=== PATIENT | male | born 1990 | race Caucasian/White ===

== ENCOUNTER 2020-10-16 20:22 | Emergency (ER) | payer OTHER, SELFPAY ==
[2020-10-16 20:49] VITALS: BP 133/80; PULSE 97; RESP 18; TEMP 36.8; O2SAT 97; BMI 22.4
--- NOTE | 2020-10-16 21:09 | XR_ITS ---
EXAMINATION: XR CHEST CLINICAL INFORMATION: Dyspnea. COMPARISON: None TECHNIQUE: Frontal view of the chest was obtained. FINDINGS: No significant abnormality is noted involving the heart, lungs, mediastinum, bony thorax or soft tissues. XR/XR chest 1V IMPRESSION: No acute cardiopulmonary process.
--- NOTE | 2020-10-16 21:10 | ECG_ITS ---
Test Reason : [id number] Blood Pressure : / mmHG Vent. Rate : 081 BPM Atrial Rate : 081 BPM P-R Int : 152 ms QRS Dur : 082 ms QT Int : 344 ms P-R-T Axes : 060 000 074 degrees QTc Int : 399 ms Normal sinus rhythm with sinus arrhythmia Nonspecific T wave abnormality Borderline ECG No previous ECGs available Referred By: Sol Moore Electronically Signed By:PROMISE HERRERA
--- NOTE | 2020-10-16 21:11 | ED.SOB ---
HPI - SOB/Dyspnea General Chief Complaint: Dyspnea Stated Complaint: SOB Time Seen by Provider: 10/16/20 21:09 Source: patient Mode of arrival: ambulatory Limitations: no limitations History of Present Illness HPI Narrative: dyspnea x 2 days, dx with COVID on 10/01/20 c/o L sided intermittent chest pains and dyspnea x 2 days, notes overall with COVID he felt MD elicited complaint: shortness of breath and chest pain Pertinent past history: asthma and other (COVID) Onset (ago): hour(s) (2) Context: recent illness Timing: intermittent Severity: moderate Exacerbating factors: nothing Relieving factors: nothing Known history of: asthma Associated symptoms: chest pain Treatment prior to arrival: none Related Data Allergies Allergy/AdvReac Type Severity Reaction Status Date / Time shellfish derived Allergy Difficulty Verified 10/16/20 20:56 Breathing Review of Systems Review of Systems: Constitutional : No Weight loss, No Fever, No Chills ENT/Mouth : No sore throat, No Rhinorrhea Eyes: No Eye Pain, No Swelling Cardiovascular : pos Chest Pain, pos SOB, no Dyspnea on Exertion, No Orthopnea, No Edema, No Palpitations Respiratory : No Cough, No Sputum Gastrointestinal : no Nausea, No Vomiting, No Diarrhea, No abdominal Pain, No Hematochezia, No Melena Genitourinary : No Dysuria, No Urinary Frequency Musculoskeletal : No joint pain, No Myalgias, No Joint Swelling Skin : No Skin Lesions, No rash Neuro : No Weakness, No Numbness, No Dizziness, No Headache Psych : No Anxiety/Panic, No Depression Heme/Lymph: No Bruising, No Lymphadenopathy Endocrine : No Polyuria, No Polydipsia All other systems reviewed and are negative [facility] Past Medical History Attestation statement: The following information was validated with the patient. Medical History (Updated 10/16/20 @ 22:27 by Sol Moore DO) Anxiety Asthma Social History Social History (Updated 10/16/20 @ 21:17 by Sol Moore DO) Alcohol intake: unknown Smoking Status: Current every day smoker Use of substances other than those prescribed or required for medical reasons: No Advance Directives: No Advance Directives Information Provided: No Physical Exam Vital Signs: Vital Signs: Last Vital Signs Temp 98.3 F 10/16/20 20:49 Pulse 97 10/16/20 20:49 Resp 18 10/16/20 20:49 BP 133/80 10/16/20 20:49 Pulse Ox 97 10/16/20 20:49 Body Mass Index 22.4 Appearance: Alert. Oriented X3. No acute distress. Eyes: Pupils equal, round and reactive to light. ENT: Pharynx normal. Neck: Normal inspection. Neck supple. CVS: Normal heart rate and rhythm. Pulses normal. Respiratory: No respiratory distress. Breath sounds normal. Abdomen: Soft and nontender. Skin: Skin warm and dry. Normal skin color. Normal skin turgor. Extremities: No lower extremity edema. No calf ttp Neuro: Oriented X 3. No motor deficit. No sensory deficit. Course Course Course Narrative: negative workup stable for DC MDM - SOB/Dyspnea MDM Narrative Medical decision making narrative: 29 yo male with recent COVID illness here with chest pain and dyspnea x 2 days at this time will need labs, EKG, troponin x 1, ddimer - has INH at home, no hypoxia and clear lungs, possibly anxiety related, low susp for dissection/ACS Lab Data Result diagrams: 10/16/20 21:35 10/16/20 21:35 Labs: Lab Results 10/16/20 10/16/20 10/16/20 Range/Units 21:35 21:35 21:35 WBC 7.8 (4.8-10.8) X10*3/uL RBC 5.32 (4.60-5.80) X10*6/uL Hgb 16.5 (14.0-18.0) g/dl Hct 47.4 (42-52) % MCV 89.1 (80-98) fL MCH 31.0 (27.0-33.0) pg MCHC 34.8 (31.0-36.0) g/dl RDW 11.9 (11.0-16.0) % Plt Count 322 (160-400) X10*3/uL MPV 9.9 (9.4-12.4) fL Immature Gran % (Auto) 0.1 (0.0-0.4) % Neut % (Auto) 71.5 (45-73) % Lymph % (Auto) 19.5 L (20-40) % Russell % (Auto) 6.1 (2-11) % Eos % (Auto) 2.3 (0-4) % Baso % (Auto) 0.5 (0-2) % Lymph # (Auto) 1.5 (1.2-4.9) X10*3/uL [place] # (Auto) 0.5 (0.1-1.2) X10*3/uL Eos # (Auto) 0.2 (0.0-0.4) X10*3/uL Baso # (Auto) 0.0 (0.0-0.2) X10*3/uL Abs Immat Gran (auto) 0.01 (0.00-0.03) X10*3/uL Absolute Neuts (auto) 5.6 (2.0-8.3) X10*3/uL Absolute Nucleated RBC 0.000 (0.0-0.012) X10*3/uL Nucleated RBC % (auto) 0.0 (0.0-0.2) /100WBC D-Dimer < 200 NG/ML Sodium 139 (135-145) mmol/L Potassium 4.2 (3.3-5.1) mmol/l Chloride 104 (96-108) mmol/L Carbon Dioxide 24 (22-29) mmol/L Anion Gap 15 (12-20) BUN 11 (9-16) mg/dL Creatinine 0.88 (0.5-1.4) mg/dL Estim Creat Clear Calc 109.2 Estimated GFR > 60 Random Glucose 102 (60-115) mg/dL Calcium 9.7 (8.4-10.2) mg/dL Troponin I High Sens (<3.5-35.0) ng/L 10/16/20 Range/Units 21:35 WBC (4.8-10.8) X10*3/uL RBC (4.60-5.80) X10*6/uL Hgb (14.0-18.0) g/dl Hct (42-52) % MCV (80-98) fL MCH (27.0-33.0) pg MCHC (31.0-36.0) g/dl RDW (11.0-16.0) % Plt Count (160-400) X10*3/uL MPV (9.4-12.4) fL Immature Gran % (Auto) (0.0-0.4) % Neut % (Auto) (45-73) % Lymph % (Auto) (20-40) % Russell % (Auto) (2-11) % Eos % (Auto) (0-4) % Baso % (Auto) (0-2) % Lymph # (Auto) (1.2-4.9) X10*3/uL Russell # (Auto) (0.1-1.2) X10*3/uL Eos # (Auto) (0.0-0.4) X10*3/uL Baso # (Auto) (0.0-0.2) X10*3/uL Abs Immat Gran (auto) (0.00-0.03) X10*3/uL Absolute Neuts (auto) (2.0-8.3) X10*3/uL Absolute Nucleated RBC (0.0-0.012) X10*3/uL Nucleated RBC % (auto) (0.0-0.2) /100WBC D-Dimer NG/ML Sodium (135-145) mmol/L Potassium (3.3-5.1) mmol/l Chloride (96-108) mmol/L Carbon Dioxide (22-29) mmol/L Anion Gap (12-20) BUN (9-16) mg/dL Creatinine (0.5-1.4) mg/dL Estim Creat Clear Calc Estimated GFR Random Glucose (60-115) mg/dL Calcium (8.4-10.2) mg/dL Troponin I High Sens < 3.5 (<3.5-35.0) ng/L ECG Data Attestation: I personally reviewed and interpreted this ECG as follows: ECG interpretation date: 10/16/20 ECG interpretation time: 21:48 Interpretation: Rate: 81 Rhythm: NSR [place]: left Normal P waves. Normal PEGGY. Normal QRS complex. ST T wave : inverted aVL, no JO ANN qTC: normal prior studies: no acute ischemia The study has been interpreted contemporaneously by me. . Discharge Plan Discharge Clinical Impression: Acute dyspnea Patient Disposition: Home, Self-Care Instructions: Dyspnea (ED) Additional Instructions: return to ED for any worsening symptoms or concerns Referrals: Physician,Unknown [Primary Care Provider] - 2 days (if not better) Stand Alone Forms: Work/School Release
[2020-10-16 21:40] LABS: MANUAL DIFF FLAG NO
[2020-10-16 21:47] LABS: Basophils Percent Auto 0.5 % (0-2); Eosinophils Absolute Auto 0.2 X10*3/uL (0.0-0.4); Eosinophils Percent Auto 2.3 % (0-4); Hematocrit 47.4 % (42-52); Hemoglobin 16.5 g/dl (14.0-18.0); Imm Gran Abs Auto 0.01 X10*3/uL (0.00-0.03); Imm Gran Pct Auto 0.1 % (0.0-0.4); Lymphocytes Absolute Auto 1.5 X10*3/uL (1.2-4.9); Lymphocytes Percent Auto 19.5 % (20-40); Mean Corpuscular HGB Conc 34.8 g/dl (31.0-36.0); Mean Corpuscular Volume 89.1 fL (80-98); Mean Platelet Volume 9.9 fL (9.4-12.4); Monocytes Absolute Auto 0.5 X10*3/uL (0.1-1.2); Monocytes Percent Auto 6.1 % (2-11); Neutrophils Absolute Auto 5.6 X10*3/uL (2.0-8.3); Neutrophils Percent Auto 71.5 % (45-73); Platelet Count 322 X10*3/uL (160-400); Red Blood Count 5.32 X10*6/uL (4.60-5.80); Red Cell Distribution Width 11.9 % (11.0-16.0); White Blood Count 7.8 X10*3/uL (4.8-10.8)
[2020-10-16 21:57] LABS: D Dimer < 200 NG/ML
[2020-10-16 22:16] LABS: Anion Gap 15 (12-20); Blood Urea Nitrogen 11 mg/dL (9-16); Calcium 9.7 mg/dL (8.4-10.2); Carbon Dioxide 24 mmol/L (22-29); Chloride 104 mmol/L (96-108); Creatinine Clr Calc Pharmacy 109.2; Estimated Glomerular Filt Rate > 60; Glucose Random 102 mg/dL (60-115); Potassium 4.2 mmol/l (3.3-5.1); Sodium 139 mmol/L (135-145)
[2020-10-16 22:24] LABS: Troponin-I High Sensitivity < 3.5 ng/L (<3.5-35.0)
== END 2020-10-16 22:32 | disposition home or self-care (01) ==
PROVIDERS: Emergency Provider Emergency Medicine
DX: R06.00 Dyspnea, unspecified (principal); Z86.16 Personal history of COVID-19; F17.200 Nicotine dependence, unspecified, uncomplicated; J45.909 Unspecified asthma, uncomplicated
CPT/HCPCS: 36415; 71045; 80048; 84484; 85025; 85379; 93005; 99284

== ENCOUNTER 2021-01-22 19:36 | Emergency (ER) | payer OTHER, SELFPAY ==
--- NOTE | ~2021-01-22 | CT_ITS ---
EXAMINATION: CT ABDOMEN AND PELVIS WITH CONTRAST CLINICAL INFORMATION: Right lower quadrant pain with question of appendicitis. History of renal stones but negative urine analysis COMPARISON: CT abdomen pelvis 12/02/2013 TECHNIQUE: Multidetector volumetric images were obtained from the superior aspect of the liver through the pubic symphysis following administration 85 mL of Omnipaque 350 intravenous contrast. Sagittal and coronal reformatted images were obtained on the technologist's workstation. Oral contrast: No This CT examination was performed using dose optimization techniques as appropriate, variously including the following: *Automated exposure control *Adjustment of mA and/or kV according to patient size (this includes techniques or standardized protocols for targeted exams where dose is matched to indication/reason for exam; i.e. extremities or head) *Use of iterative reconstruction technique DLP: 372 mGy-cm FINDINGS: LUNG BASES: The visualized lung bases are unremarkable. LIVER, GALLBLADDER, AND BILIARY TREE: The liver is normal in size, shape, and attenuation. No focal hepatic lesion or biliary ductal dilatation is present. The gallbladder is unremarkable with no evidence of radiopaque gallstones, gallbladder wall thickening, or obvious pericholecystic inflammatory changes. PANCREAS: Unremarkable. SPLEEN: A densely calcified splenic cyst is present. The calcium has appeared since the 2013 study. ADRENAL GLANDS: Unremarkable. KIDNEYS AND URETERS: The kidneys are normal in size, shape, and attenuation. No hydronephrosis, hydroureter, or calculi seen. No perinephric stranding. BLADDER: Unremarkable. GASTROINTESTINAL TRACT: Some colonic diverticular changes are present without diverticulitis. The small and large bowel are otherwise unremarkable. The appendix is unremarkable without inflammatory changes. It is 6 mm in diameter. No air is present within the appendix. No adenopathy is seen.. ABDOMINAL WALL: No significant hernia is appreciated. LYMPH NODES: There is some mildly prominent lymph nodes present in the cecal mesentery the largest measuring 2.0 x 0.9 x 1.0 cm (4:447). No retroperitoneal lymphadenopathy is seen VASCULAR: Unremarkable. PELVIC VISCERA: Unremarkable. OSSEOUS STRUCTURES: Unremarkable. CT/CT abdomen pelvis w con IMPRESSION: A cause for the patient's acute right lower quadrant pain is not found. No evidence of acute appendicitis. Prominent lymph nodes are present in the cecal mesentery as described above.
[2021-01-22 19:50] VITALS: BP 127/72; PULSE 88; RESP 18; TEMP 37.2; O2SAT 98; BMI 21.6
[2021-01-22 20:35] LABS: MANUAL DIFF FLAG NO
[2021-01-22 20:39] LABS: Basophils Absolute Auto 0.1 X10*3/uL (0.0-0.2); Basophils Percent Auto 0.6 % (0-2); Eosinophils Absolute Auto 0.4 X10*3/uL (0.0-0.4); Eosinophils Percent Auto 4.4 % (0-4); Hematocrit 47.5 % (42-52); Hemoglobin 16.5 g/dl (14.0-18.0); Imm Gran Abs Auto 0.02 X10*3/uL (0.00-0.03); Imm Gran Pct Auto 0.2 % (0.0-0.4); Lymphocytes Absolute Auto 1.2 X10*3/uL (1.2-4.9); Mean Corpuscular HGB Conc 34.7 g/dl (31.0-36.0); Mean Corpuscular Hemoglobin 31.2 pg (27.0-33.0); Mean Corpuscular Volume 89.8 fL (80-98); Mean Platelet Volume 9.3 fL (9.4-12.4); Monocytes Absolute Auto 0.6 X10*3/uL (0.1-1.2); Monocytes Percent Auto 6.2 % (2-11); Neutrophils Absolute Auto 6.7 X10*3/uL (2.0-8.3); Neutrophils Percent Auto 75.6 % (45-73); Platelet Count 265 X10*3/uL (160-400); Red Blood Count 5.29 X10*6/uL (4.60-5.80); Red Cell Distribution Width 11.9 % (11.0-16.0); White Blood Count 8.9 X10*3/uL (4.8-10.8)
[2021-01-22 20:40] LABS: Appearance Urine CLEAR; Color Urine YELLOW; Glucose Urine UA NEG (NEG); Leukocyte Esterase Urine NEG (NEG); Nitrite Urine NEG (NEG); Urine Blood TRACE (NEG); Urine Ketones NEG (NEG); Urine Protein NEG (NEG-TRACE)
[2021-01-22 20:44] LABS: RBC Urine 0 /HPF (0); WBC Urine 0 /HPF (0-4)
[2021-01-22 21:07] LABS: Alanine Aminotransferase 23 U/L (0-40); Albumin Level 4.6 g/dL (3.5-5.0); Alkaline Phosphatase 74 U/L (39-117); Anion Gap 14 (12-20); Aspartate Amino Transferase 16 U/L (5-37); Bilirubin Total 1.1 mg/dL (0.0-1.0); Blood Urea Nitrogen 8 mg/dL (9-16); Calcium 9.4 mg/dL (8.4-10.2); Carbon Dioxide 25 mmol/L (22-29); Chloride 104 mmol/L (96-108); Creatinine Clr Calc Pharmacy 101.9; Estimated Glomerular Filt Rate > 60; Glucose Random 88 mg/dL (60-115); Potassium 4.3 mmol/L (3.3-5.1); Sodium 139 mmol/L (135-145); Total Protein 7.8 g/dL (6.5-8.0)
[2021-01-22 22:00] VITALS: BP 102/63; PULSE 70; RESP 15; TEMP 37.2; O2SAT 98
--- NOTE | 2021-01-22 22:44 | ED.ABDPAIN ---
HPI - Abdominal Pain General Chief Complaint: Abdominal Pain Stated Complaint: Abdominal pain Time Seen by Provider: 01/22/21 22:44 Source: patient Mode of arrival: ambulatory Limitations: no limitations History of Present Illness HPI narrative: Patient history of kidney stone last time patient has stone in 2019 woke up today with sharp pain in right lower quadrant with nausea no vomiting pain increases on ambulation. Denies any urinary complaints no blood in the urine patient feels hungry no fever or chills no back pain MD elicited complaint: abdominal pain Pertinent past history: kidney stones Onset (ago): day(s) Pain Consistency: constant Location: RLQ Severity: moderate Quality: stabbing Radiation: RLQ Migration to: no migration Exacerbating factors: movement Relieving factors: nothing Associated symptoms: nausea Related Data Previous Rx's Medication Instructions Recorded ibuprofen 600 mg PO Q6H PRN #20 tab 01/23/21 Allergies Allergy/AdvReac Type Severity Reaction Status Date / Time shellfish derived Allergy Difficulty Verified 01/22/21 19:50 Breathing Review of Systems Review of Systems Constitutional : No Weight loss, No Fever, No Chills ENT/Mouth : No sore throat, No Rhinorrhea Eyes: No Eye Pain, No Swelling Cardiovascular : No Chest Pain, no palpitations Respiratory : No Cough, No Sputum, no shortness of breath Gastrointestinal : + Nausea, No Vomiting, No Diarrhea,+abdominal Pain, no black stools Genitourinary : No Dysuria, No Urinary Frequency Musculoskeletal : No joint pain, No Myalgias, No Joint Swelling Skin : No Skin Lesions, No rash Neuro : No Weakness, No Numbness, No Dizziness, No Headache Psych : No Anxiety/Panic, No Depression Heme/Lymph: No Bruising, No Lymphadenopathy Endocrine : No Polyuria, No Polydipsia All other systems reviewed and are negative Physical Exam Vital Signs: Vital Signs: Last Vital Signs Temp 99.0 F 01/22/21 22:00 Pulse 70 01/23/21 00:05 Resp 16 01/23/21 00:05 BP 132/82 01/23/21 00:05 Pulse Ox 100 01/23/21 00:05 Body Mass Index 21.6 Appearance: Alert. Oriented X3. No acute distress. Eyes: PERRLA, No Nystagmus ENT: Pharynx normal. Oral Mucosa moist Neck: Normal inspection. Neck supple. CVS: Normal heart rate and rhythm. Pulses normal. Respiratory: No respiratory distress. Equal air entry bilateral, no wheezing/rales/rhonchi Abdomen: Soft , tenderness right lower quadrant with guarding , no rebound tenderness Bowel sounds are present, no mass palpable, no CVA tenderness Skin: Skin warm and dry. Normal skin color. Normal skin turgor. Extremities: No lower extremity edema. No calf tenderness Neuro: Oriented X 3. No motor deficit. No sensory deficit.No cerebellar signs , cranial nerves II-XII intact MDM - Abdominal Pain MDM Narrative Medical decision making narrative: Patient with right lower quadrant tenderness with history of kidney stone urine negative for hematuria white counts are normal but patient has significant tenderness in right lower quadrant no flank pain will do CT scan to rule out acute appendicitis versus stone Patient's CT scan negative for acute appendicitis or stone showed the prominent celiac lymph node. Will discharge patient home advised to follow-up with pcp Lab Data Attestation: I reviewed the patient's lab results. Result diagrams: 01/22/21 20:30 01/22/21 20:30 Labs: Lab Results 01/22/21 01/22/21 01/22/21 Range/Units 20:30 20:30 20:30 WBC 8.9 (4.8-10.8) X10*3/uL RBC 5.29 (4.60-5.80) X10*6/uL Hgb 16.5 (14.0-18.0) g/dl Hct 47.5 (42-52) % MCV 89.8 (80-98) fL MCH 31.2 (27.0-33.0) pg MCHC 34.7 (31.0-36.0) g/dl RDW 11.9 (11.0-16.0) % Plt Count 265 (160-400) X10*3/uL MPV 9.3 L (9.4-12.4) fL Immature Gran % (Auto) 0.2 (0.0-0.4) % Neut % (Auto) 75.6 H (45-73) % Lymph % (Auto) 13.0 L (20-40) % [place] % (Auto) 6.2 (2-11) % Eos % (Auto) 4.4 H (0-4) % Baso % (Auto) 0.6 (0-2) % Lymph # (Auto) 1.2 (1.2-4.9) X10*3/uL [place] # (Auto) 0.6 (0.1-1.2) X10*3/uL Eos # (Auto) 0.4 (0.0-0.4) X10*3/uL Baso # (Auto) 0.1 (0.0-0.2) X10*3/uL Abs Immat Gran (auto) 0.02 (0.00-0.03) X10*3/uL Absolute Neuts (auto) 6.7 (2.0-8.3) X10*3/uL Absolute Nucleated RBC 0.000 (0.0-0.012) X10*3/uL Nucleated RBC % (auto) 0.0 (0.0-0.2) /100WBC Hold Blue Top SEE NOTE Sodium 139 (135-145) mmol/L Potassium 4.3 (3.3-5.1) mmol/L Chloride 104 (96-108) mmol/L Carbon Dioxide 25 (22-29) mmol/L Anion Gap 14 (12-20) BUN 8 L (9-16) mg/dL Creatinine 0.90 (0.5-1.4) mg/dL Estim Creat Clear Calc 101.9 Estimated GFR > 60 Random Glucose 88 (60-115) mg/dL Calcium 9.4 (8.4-10.2) mg/dL Total Bilirubin 1.1 H (0.0-1.0) mg/dL AST 16 (5-37) U/L ALT 23 (0-40) U/L Alkaline Phosphatase 74 (39-117) U/L Total Protein 7.8 (6.5-8.0) g/dL Albumin 4.6 (3.5-5.0) g/dL Urine Color Urine Appearance Urine pH (5.0-8.0) Ur Specific [place] (1.005-1.025) Urine Protein (NEG-TRACE) MG/DL Urine Glucose (UA) (NEG) MG/DL Urine Ketones (NEG) MG/DL Urine Blood (NEG) Urine Nitrite (NEG) Ur Leukocyte Esterase (NEG) Urine RBC (0) /HPF Urine WBC (0-4) /HPF Ur Squamous Epith Cells /LPF Urine Bacteria /LPF 01/22/21 Range/Units 20:32 WBC (4.8-10.8) X10*3/uL RBC (4.60-5.80) X10*6/uL Hgb (14.0-18.0) g/dl Hct (42-52) % MCV (80-98) fL MCH (27.0-33.0) pg MCHC (31.0-36.0) g/dl RDW (11.0-16.0) % Plt Count (160-400) X10*3/uL MPV (9.4-12.4) fL Immature Gran % (Auto) (0.0-0.4) % Neut % (Auto) (45-73) % Lymph % (Auto) (20-40) % [place] % (Auto) (2-11) % Eos % (Auto) (0-4) % Baso % (Auto) (0-2) % Lymph # (Auto) (1.2-4.9) X10*3/uL [place] # (Auto) (0.1-1.2) X10*3/uL Eos # (Auto) (0.0-0.4) X10*3/uL Baso # (Auto) (0.0-0.2) X10*3/uL Abs Immat Gran (auto) (0.00-0.03) X10*3/uL Absolute Neuts (auto) (2.0-8.3) X10*3/uL Absolute Nucleated RBC (0.0-0.012) X10*3/uL Nucleated RBC % (auto) (0.0-0.2) /100WBC Hold Blue Top Sodium (135-145) mmol/L Potassium (3.3-5.1) mmol/L Chloride (96-108) mmol/L Carbon Dioxide (22-29) mmol/L Anion Gap (12-20) BUN (9-16) mg/dL Creatinine (0.5-1.4) mg/dL Estim Creat Clear Calc Estimated GFR Random Glucose (60-115) mg/dL Calcium (8.4-10.2) mg/dL Total Bilirubin (0.0-1.0) mg/dL AST (5-37) U/L ALT (0-40) U/L Alkaline Phosphatase (39-117) U/L Total Protein (6.5-8.0) g/dL Albumin (3.5-5.0) g/dL Urine Color YELLOW Urine Appearance CLEAR Urine pH 6.0 (5.0-8.0) Ur Specific [place] 1.010 (1.005-1.025) Urine Protein NEG (NEG-TRACE) MG/DL Urine Glucose (UA) NEG (NEG) MG/DL Urine Ketones NEG (NEG) MG/DL Urine Blood TRACE (NEG) Urine Nitrite NEG (NEG) Ur Leukocyte Esterase NEG (NEG) Urine RBC 0 (0) /HPF Urine WBC 0 (0-4) /HPF Ur Squamous Epith Cells NONE /LPF Urine Bacteria NONE /LPF Discharge Plan Discharge Clinical Impression: Abdominal pain Patient Disposition: Home, Self-Care Instructions: Abdominal Pain (ED) Additional Instructions: Your abdominal pain is likely from lymph node enlargement which is from inflammation. No findings of appendicitis no kidney stone was found in the CT scan. Usually pain will subside in 2 3 days Drink plenty of fluids take ibuprofen pain follow-up with PCP if any concern Prescriptions: New ibuprofen 600 mg tablet 600 mg PO Q6H PRN (Reason: pain) Qty: 20 RF: 0 PMFSH Past Medical History Medical History Anxiety Asthma Social History Social History Alcohol intake: unknown Smoking Status: Current every day smoker Advance Directives: No Advance Directives Information Provided: Yes
[2021-01-22 23:07] VITALS: RESP 15
[2021-01-22] MEDS: Morphine Sulfate 4 MG/ML CARTRIDGE IVPUSH (23:07)
[2021-01-22] MEDS: 0.9 % Sodium Chloride 1,000 ML 999 ML IVCONT (23:07)
[2021-01-22] MEDS: ondansetron HCL 4 MG/2 ML VIAL IVPUSH (23:07)
[2021-01-23] MEDS: iohexoL 350 MG/ML 100 ML INFUS..BTL 85 ML IV (00:01)
[2021-01-23 00:05] VITALS: BP 132/82; PULSE 70; RESP 16; O2SAT 100
== END 2021-01-23 01:40 | disposition home or self-care (01) ==
PROVIDERS: Emergency Provider Internal Medicine
DX: R10.31 Right lower quadrant pain (principal); R59.9 Enlarged lymph nodes, unspecified; F17.200 Nicotine dependence, unspecified, uncomplicated
CPT/HCPCS: 36415; 74177; 80053; 81001; 85025; 96361; 96374; 96375; 99284; 99285; J2270; J2405; Q9967

== ENCOUNTER 2021-12-19 20:14 | Inpatient (IN) | payer MEDICAID, SELFPAY ==
--- NOTE | ~2021-12-19 | CT_ITS ---
EXAMINATION: CT ABDOMEN AND PELVIS WITH CONTRAST CLINICAL INFORMATION: Right lower quadrant pain with question of appendicitis COMPARISON: CT scan 01/22/2021 TECHNIQUE: Multidetector volumetric images were obtained from the superior aspect of the liver through the pubic symphysis following administration 85 mL of Omnipaque 350 intravenous contrast. Sagittal and coronal reformatted images were obtained on the technologist's workstation. Oral contrast: No This CT examination was performed using dose optimization techniques as appropriate, variously including the following: *Automated exposure control *Adjustment of mA and/or kV according to patient size (this includes techniques or standardized protocols for targeted exams where dose is matched to indication/reason for exam; i.e. extremities or head) *Use of iterative reconstruction technique DLP: 464 mGy-cm FINDINGS: LUNG BASES: The visualized lung bases are unremarkable. LIVER, GALLBLADDER, AND BILIARY TREE: Again seen is a mildly enlarged liver measuring 6 cm in greatest cephalocaudad dimension. No focal hepatic lesion or biliary ductal dilatation is present. The gallbladder is unremarkable with no evidence of radiopaque gallstones, gallbladder wall thickening, or obvious pericholecystic inflammatory changes. PANCREAS: Unremarkable. SPLEEN: A densely calcified splenic cyst is again seen, stable since 01/22/2021. ADRENAL GLANDS: Unremarkable. KIDNEYS AND URETERS: The kidneys are normal in size, shape, and attenuation. No hydronephrosis, hydroureter, or calculi seen. No perinephric stranding. BLADDER: Unremarkable. GASTROINTESTINAL TRACT: Some colonic diverticular changes are present without diverticulitis. The small and large bowel are otherwise unremarkable. The appendix is unremarkable without inflammatory changes. It is 6 mm in diameter. No air is present within the appendix. No adenopathy is seen.. ABDOMINAL WALL: No significant hernia is appreciated. LYMPH NODES: There is some mildly prominent lymph nodes present in the cecal mesentery the largest remeasuring 1.5 x 0.7 x 0.7 cm (4: 415). No retroperitoneal lymphadenopathy is seen VASCULAR: Unremarkable. PELVIC VISCERA: Prostate appears normal. Seminal vesicles size. OSSEOUS STRUCTURES: Unremarkable. CT/CT abdomen pelvis w con IMPRESSION: A cause for the patient's acute right lower quadrant pain is not found. No evidence of acute appendicitis. Prominent lymph nodes are present in the cecal mesentery as described above similar to what was previously seen. Fleischner guidelines were followed.
[2021-12-19 20:22] VITALS: BP 144/93; PULSE 112; RESP 18; TEMP 37.1; O2SAT 97; BMI 25.0
[2021-12-19 20:40] LABS: MANUAL DIFF FLAG NO
[2021-12-19 20:42] LABS: Basophils Percent Auto 0.3 % (0-2); Eosinophils Absolute Auto 0.3 X10*3/uL (0.0-0.4); Eosinophils Percent Auto 3.2 % (0-4); Hematocrit 47.8 % (42.0-52.0); Hemoglobin 16.4 g/dl (14.0-18.0); Imm Gran Abs Auto 0.04 X10*3/uL (0.00-0.03); Imm Gran Pct Auto 0.4 % (0.0-0.4); Lymphocytes Absolute Auto 1.3 X10*3/uL (1.2-4.9); Lymphocytes Percent Auto 12.5 % (20-40); Mean Corpuscular HGB Conc 34.3 g/dl (31.0-36.0); Mean Corpuscular Hemoglobin 30.8 pg (27.0-33.0); Mean Corpuscular Volume 89.7 fL (80.0-98.0); Mean Platelet Volume 9.4 fL (9.4-12.4); Monocytes Absolute Auto 0.7 X10*3/uL (0.1-1.2); Monocytes Percent Auto 6.3 % (2-11); Neutrophils Percent Auto 77.3 % (45-73); Platelet Count 267 X10*3/uL (160-400); Red Blood Count 5.33 X10*6/uL (4.60-5.80); Red Cell Distribution Width 11.9 % (11.0-16.0); White Blood Count 10.3 X10*3/uL (4.8-10.8)
[2021-12-19 20:51] LABS: Appearance Urine CLEAR; Color Urine YELLOW; Glucose Urine UA NEG (NEG); Leukocyte Esterase Urine NEG (NEG); Nitrite Urine NEG (NEG); UACC Culture Trigger NO; Urine Blood TRACE (NEG); Urine Ketones NEG (NEG); Urine Protein NEG (NEG-TRACE)
[2021-12-19 20:55] LABS: Anion Gap 15 (12-20); Blood Urea Nitrogen 10 mg/dL (9-16); Calcium 9.7 mg/dL (8.4-10.2); Carbon Dioxide 25 mmol/L (22-29); Chloride 102 mmol/L (96-108); Creatinine Clr Calc Pharmacy 88.6; Estimated Glomerular Filt Rate > 60; Glucose Random 125 mg/dL (60-115); Potassium 4.4 mmol/L (3.3-5.1); Sodium 138 mmol/L (135-145)
[2021-12-19 21:18] LABS: RBC Urine 0-2 /HPF (0); Squamous Epithelial Cell Urine TRACE /LPF; WBC Urine 0-2 /HPF (0-4)
[2021-12-19 21:59] VITALS: BP 123/77; PULSE 107; RESP 16; TEMP 37.1; O2SAT 99
--- NOTE | 2021-12-19 22:29 | ED.ABDPAIN ---
HPI - Abdominal Pain General Chief Complaint: Abdominal Pain Stated Complaint: lower abd pain Time Seen by Provider: 12/19/21 22:10 Source: patient Mode of arrival: ambulatory Limitations: no limitations History of Present Illness HPI narrative: 31-year-old male who presents emergency department for evaluation of abdominal pain. Patient states that woke up this morning with abdominal pain around 10:00 A.M. He states that the pain gradually got worse. he describes the pain is a constant, pressure-like pain which is 7/10 at its worst. The pain is worse with movement and with twitching in his right lower abdomen. States when he pressures on that area the pain is very sharp. He states his last bowel movement was today at 14:00 and it was normal. He has been drinking a lot of fluid and he states that he has had frequency with no dysuria. He states he has had a good appetite and he ate a burrito approximately 1 hour prior to coming to the emergency department. He states he does have a history of kidney stones but the kidney stone pain was different than his pain today. He had associated nausea with no vomiting. He did not take any medications for the pain prior to coming to the emergency department. elicited complaint: abdominal pain Pertinent past history: kidney stones Onset (ago): day(s) (1) Pain Consistency: constant Location: RUQ Severity: severe Pain scale (0-10): 7 Quality: cramping Radiation: none Migration to: no migration Exacerbating factors: movement Relieving factors: nothing Associated symptoms: nausea Related Data Previous Rx's Medication Instructions Recorded ibuprofen 600 mg tablet 600 mg PO Q6H PRN #20 tab 01/23/21 Allergies Allergy/AdvReac Type Severity Reaction Status Date / Time shellfish derived Allergy Difficulty Verified 01/22/21 19:50 Breathing Review of Systems Review of Systems Yes all other systems are reviewed and are negative [facility] Past Medical History [facility] Narrative: Past medical history: Reviewed below. clinic patient also states that he has ADHD. Past surgical history: None. Social history: Patient states that he vapes tobacco products multiple times a day. He drinks alcohol on Monday nights he states that he drinks anywhere from 4-10 beers. He denies drug use. Medical History Anxiety Asthma Kidney stone Social History Social History Alcohol intake: unknown Advance Directives: No Advance Directives Information Provided: No Physical Exam ED Vital Signs: Vital Signs - 24 hr 12/19/21 20:22 12/19/21 21:59 12/20/21 00:38 Temperature 98.7 F 98.7 F 97.6 F Pulse Rate 112 H 107 H 71 Respiratory Rate 18 16 14 Blood Pressure 144/93 H 123/77 126/77 Pulse Oximetry 97 99 98 BMI result Body Mass Index 25.0 Const General: cooperative and no acute distress Orientation/consciousness: oriented to person and oriented to place Limitations: no limitations HENMT Head: Yes normal to inspection, Yes normocephalic and Yes atraumatic Ears: external ears normal General nose exam: Normal external nose present Face and sinus: Yes normal facial exam Mouth: Normal oral and palatal mucosa present Throat: Yes posterior oropharynx normal Eyes General: appearance normal, both eyes and all related structures Pupils: Equal, round and reactive pupils present Neck Neck: Yes normal visual inspection, Yes no lymphadenopathy, Yes trachea midline and Yes supple Chest Chest palpation & inspection: normal inspection of the chest and normal palpation of entire chest wall Resp Effort & Inspection: normal respiratory effort and able to speak in complete sentences Auscultation: clear to auscultation bilaterally Cardio Rate: regular rate Rhythm: regular rhythm Heart sounds: S1 normal heart sound present, S2 normal heart sound present and no murmurs GI Inspection: Yes normal to inspection Palpation (GI): Soft to palpation, Tenderness to palpation present (GI) in the RLQ, at McBurney's point and Rovsing's sign positive and no guarding Auscultation: normal bowel sounds General: Yes no CVA tenderness Back/Spine/Pelvis Back: no CVA tenderness Skin General skin exam: no rashes or lesions noted Neuro General: oriented to person and oriented to place Cranial nerves: Yes CN's II-XII intact bilaterally and Yes Equal, round and reactive pupils present Cognition (Neuro): normal cognition Motor exam (neuro): 5/5 motor strength present throughout Extrem General: Yes normal to inspection Psych Appearance: grossly normal Speech and movement: Normal speech and movement present Affect: normal affect Attitude: cooperative Thought process: Normal thought process present Thought content: Normal thought content present Course Course Course Narrative: 31-year-old male who presents emergency department for evaluation right lower quadrant pain which began around 10:00 when he woke up from sleep, the pain is been constant, is worse with movement and worse when he presses on his right lower quadrant, he has had associated nausea with no vomiting, the patient has had a good appetite and ate a burrito approximately 1 hour prior to coming to the emergency department without any difficulty. Patient states that he has a history of kidney stones but the kidney stone pain was different than today's pain. Vital signs were stable. Physical examination did reveal tenderness at McBurney's point in the right lower quadrant and positive Rovsing sign. Differential includes but is not limited to acute appendicitis, colitis, pancreatitis, viral syndrome, kidney stone . Patient was ordered to get Toradol 15 mg IV, Zofran 4 mg IV and normal saline x1 L. Liver panel and lipase were added to previous blood work. CT scan of the abdomen pelvis with IV contrast 1036: Laboratory evaluation: CBC and BMP were normal Except for elevated glucose 125. Urinalysis was negative. was ordered. 0221: Laboratory evaluation: LFTs revealed an elevated bilirubin of 1.7 otherwise unremarkable. Lipase was normal. Urinalysis was negative. CT scan abdomen pelvis revealed a normal appearing appendix, the patient has cecal lymphadenopathy which is unchanged from previous CT scan he also has diverticulosis with no diverticulitis. Patient did get minimal relief with the IV Toradol and was given morphine 4 mg IV but required a 2nd dose of morphine 4 mg IV. On my repeat examination the patient still has significant right lower quadrant tenderness with referred right-sided tenderness with palpation of the left lower quadrant. The findings are concerning for acute appendicitis and I did discuss the patient with the covering general surgeon, Dr. Naranjo. He agreed to admit the patient to the hospital for observation and re-evaluation for possible appendicitis. Patient was ordered to get Zosyn 4.5 g IV and lactated Ringer's at 125 mL/hr MDM - Abdominal Pain Lab Data Result diagrams: 12/19/21 20:32 12/19/21 20:32 Labs: Lab Results 12/19/21 12/19/21 12/19/21 Range/Units 20:32 20:32 20:39 WBC 10.3 (4.8-10.8) X10*3/uL RBC 5.33 (4.60-5.80) X10*6/uL Hgb 16.4 (14.0-18.0) g/dl Hct 47.8 (42.0-52.0) % MCV 89.7 (80.0-98.0) fL MCH 30.8 (27.0-33.0) pg MCHC 34.3 (31.0-36.0) g/dl RDW 11.9 (11.0-16.0) % Plt Count 267 (160-400) X10*3/uL MPV 9.4 (9.4-12.4) fL Immature Gran % (Auto) 0.4 (0.0-0.4) % Neut % (Auto) 77.3 H (45-73) % Lymph % (Auto) 12.5 L (20-40) % Josephine % (Auto) 6.3 (2-11) % Eos % (Auto) 3.2 (0-4) % Baso % (Auto) 0.3 (0-2) % Lymph # (Auto) 1.3 (1.2-4.9) X10*3/uL Josephine # (Auto) 0.7 (0.1-1.2) X10*3/uL Eos # (Auto) 0.3 (0.0-0.4) X10*3/uL Baso # (Auto) 0.0 (0.0-0.2) X10*3/uL Abs Immat Gran (auto) 0.04 H (0.00-0.03) X10*3/uL Absolute Neuts (auto) 8.0 (2.0-8.3) x10*3/uL Absolute Nucleated RBC 0.000 (0.0-0.012) X10*3/uL Nucleated RBC % (auto) 0.0 (0.0-0.2) /100WBC Sodium 138 (135-145) mmol/L Potassium 4.4 (3.3-5.1) mmol/L Chloride 102 (96-108) mmol/L Carbon Dioxide 25 (22-29) mmol/L Anion Gap 15 (12-20) BUN 10 (9-16) mg/dL Creatinine 1.07 (0.5-1.4) mg/dL Estim Creat Clear Calc 88.6 Estimated GFR > 60 Random Glucose 125 H D (60-115) mg/dL Calcium 9.7 (8.4-10.2) mg/dL Total Bilirubin 1.7 H (0.0-1.0) mg/dL Direct Bilirubin 0.5 (0.0-0.5) mg/dL AST 20 (5-37) U/L ALT 30 (0-40) U/L Alkaline Phosphatase 71 (39-117) U/L Total Protein 7.7 (6.5-8.0) g/dL Albumin 4.5 (3.5-5.0) g/dL Lipase 36 (8-78) U/L Urine Color YELLOW Urine Appearance CLEAR Urine pH 6.0 (5.0-8.0) Ur Specific [place] 1.020 (1.005-1.025) Urine Protein NEG (NEG-TRACE) MG/DL Urine Glucose (UA) NEG (NEG) MG/DL Urine Ketones NEG (NEG) MG/DL Urine Blood TRACE (NEG) Urine Nitrite NEG (NEG) Ur Leukocyte Esterase NEG (NEG) Urine RBC 0-2 (0) /HPF Urine WBC 0-2 (0-4) /HPF Ur Squamous Epith Cells TRACE /LPF Urine Bacteria NONE /LPF Discharge Plan Discharge Patient Disposition: Admitted As Inpatient Prescriptions: No Action ibuprofen 600 mg tablet 600 mg PO Q6H PRN (Reason: pain) Qty: 20 0RF
[2021-12-19 22:30] LABS: Alanine Aminotransferase 30 U/L (0-40); Albumin Level 4.5 g/dL (3.5-5.0); Alkaline Phosphatase 71 U/L (39-117); Aspartate Amino Transferase 20 U/L (5-37); Bilirubin Direct 0.5 mg/dL (0.0-0.5); Bilirubin Total 1.7 mg/dL (0.0-1.0); Lipase 36 U/L (8-78); Total Protein 7.7 g/dL (6.5-8.0)
[2021-12-19] MEDS: Nicotine 21 MG PATCH.TD24 TRANSDERMA (22:53)
[2021-12-19] MEDS: ondansetron HCL 4 MG/2 ML VIAL IVPUSH (22:56)
[2021-12-19] MEDS: Ketorolac Tromethamine 15 MG/ML VIAL IVPUSH (22:56)
[2021-12-19] MEDS: 0.9 % Sodium Chloride 1,000 ML 999 ML IV (22:57)
--- NOTE | 2021-12-19 22:58 | PC.NURSE ---
patient a&ox3, c/o 04/03 rlq abd pain, iv inserted, pt medicated per order, awaiting radiology for ct scan
[2021-12-19] MEDS: Morphine Sulfate 4 MG/ML CARTRIDGE IVPUSH (23:54)
--- NOTE | 2021-12-19 23:55 | PC.NURSE ---
Pt medicated as charted with morphine for pain.
[2021-12-20] VITALS (7 sets, daily range): BP systolic 109–142; BP diastolic 61–84; PULSE 55–72; RESP 14–18; TEMP 36.4–36.8; O2SAT 98–100
[2021-12-20] MEDS: iohexoL 350 MG/ML 100 ML INFUS..BTL 85 ML IV (01:07)
[2021-12-20] MEDS: Morphine Sulfate 4 MG/ML CARTRIDGE IVPUSH ×4 (02:29→20:00)
--- NOTE | 2021-12-20 02:30 | PC.NURSE ---
Pt given additional dose of morphine for continued abd pain. Pipercillin hung and running. Skin wd, resp reg and even.
[2021-12-20] MEDS: Piperacillin Sodium/Tazobactam 4.5 GM in 0.9 % Sodium Chloride 100 ML IV (02:31)
[2021-12-20] MEDS: Dextrose 5 % and Lactated Ring 1,000 ML 125 ML IVCONT ×3 (03:14→18:35)
[2021-12-20 03:42] LABS: COVID-19 Test Negative (Negative)
[2021-12-20 06:57] LABS: MANUAL DIFF FLAG NO
[2021-12-20 07:15] LABS: Basophils Percent Auto 0.5 % (0-2); Eosinophils Absolute Auto 0.6 X10*3/uL (0.0-0.4); Eosinophils Percent Auto 7.4 % (0-4); Hematocrit 44.5 % (42.0-52.0); Hemoglobin 14.7 g/dl (14.0-18.0); Imm Gran Abs Auto 0.02 X10*3/uL (0.00-0.03); Imm Gran Pct Auto 0.3 % (0.0-0.4); Lymphocytes Percent Auto 26.1 % (20-40); Mean Corpuscular Hemoglobin 30.6 pg (27.0-33.0); Mean Corpuscular Volume 92.5 fL (80.0-98.0); Mean Platelet Volume 9.8 fL (9.4-12.4); Monocytes Absolute Auto 0.5 X10*3/uL (0.1-1.2); Monocytes Percent Auto 6.7 % (2-11); Neutrophils Absolute Auto 4.5 x10*3/uL (2.0-8.3); Platelet Count 221 X10*3/uL (160-400); Red Blood Count 4.81 X10*6/uL (4.60-5.80); Red Cell Distribution Width 11.9 % (11.0-16.0); White Blood Count 7.6 X10*3/uL (4.8-10.8)
--- NOTE | 2021-12-20 07:24 | PM.HPGS ---
History of Present Illness History of Present Illness Date of Service: 12/20/21 Chief complaint: right lower quadrant abd pain possible appendiciti Narrative: Lamine Ramirez is a 31 year old male presenting with complaints of abdominal pain in the right lower quadrant. Patient will could the morning complaints of abdominal pain around 10:00 a gradually increased in severity to a maximum of 7/10. The pain was made worse with ambulation and felt mainly in the right lower quadrant. He denies nausea, vomiting, or anorexia. He had a prior history of similar pain approximately a year ago which resolved without surgery. He presented to the emergency department for further evaluation and was noted to have tenderness in the right lower quadrant suggestive of appendicitis. Workup however revealed a normal WBC and CT which was negative for thickened appendix or changes consistent with appendicitis. Enlarged mesenteric lymph node was identified suggestive of mesenteric adenitis. Patient is admitted for antibiotics and pain control. Review of Systems Constitutional: Constitutional: Denies chills, Denies fever(s), Denies headache(s) and Denies poor appetite ENT: Denies dizziness and Denies headache(s) Cardiovascular: Cardiovascular: Denies chest pain, Denies rapid heart rate, Denies palpitations and Denies slow heart rate Respiratory: Respiratory: Denies chest congestion, Denies cough, Denies pain on inspiration and Denies wheezing Gastrointestinal: Gastrointestinal: Reports as per HPI, Reports abdominal pain, Denies bloating, Denies change in stool character, Denies constipation, Denies diarrhea, Denies nausea, Denies vomiting and Denies hematemesis Musculoskeletal: Musculoskeletal: Denies back pain, Denies arthralgias, Denies joint swelling and Denies numbness Integumentary/Breasts: Skin/Breast: Denies change in pigmentation, Denies erythema and Denies rash Neurologic: Denies dizziness, Denies headache(s) and Denies numbness Psychiatric: Psychiatric: Denies anxiety and Denies depression Endocrine: Endocrine: Denies palpitations Hematologic/Lymphatic: Hematologic/Lymphatic: Denies easy bleeding, Denies easy bruising and Denies lymphadenopathy Allergic/Immunologic: Allergic/Immunologic: Denies wheezing PMFSH Past Medical History Medical History Anxiety Asthma Kidney stone Social History Social History Alcohol intake: unknown Advance Directives: No Advance Directives Information Provided: No Meds Allergies Allergy/AdvReac Type Severity Reaction Status Date / Time shellfish derived Allergy Difficulty Verified 01/22/21 19:50 Breathing Active Medications: Current Medications Acetaminophen (Acetaminophen 325 Mg Tablet) 650 mg PO QID PRN PRN Reason: headache, temp > 101 Lactated Ringer's (Lr) 1,000 mls @ 125 mls/hr IVCONT .Q8H KATLIN Last Admin: 12/20/21 04:18 Dose: Not Given Documented by: Dextrose/Lactated Ringer's ([email or web address]) 1,000 mls @ 125 mls/hr IVCONT .Q8H KATLIN Last Admin: 12/20/21 03:14 Dose: 125 mls/hr Documented by: Piperacillin Sod/Tazobactam (Sod 3.375 gm/ Sodium Chloride) 50 mls @ 100 mls/hr IV Q6H KATLIN Morphine Sulfate (Morphine Sulfate 4 Mg/Ml Cartridge) 4 mg IVPUSH Q3H PRN; Protocol PRN Reason: Pain, Severe (Pain Scale 7-10) Ondansetron HCl (Ondansetron Hcl 4 Mg/2 Ml Vial) 4 mg IVPUSH QID PRN PRN Reason: Nausea Pharmacy Consult (Consult Rx Perform Med Rec) 1 each MISCELLANE ONCE PRN PRN Reason: Consult order Sodium Chloride (0.9 % Sodium Chloride Flush 3 Ml Syringe) 3 ml IVFLUSH QSHIFT KATLIN Zolpidem Tartrate (Zolpidem Tartrate 5 Mg Tablet) 5 mg PO BEDTIME PRN PRN Reason: Insomnia Home Medications Medication Instructions Recorded Confirmed Last Taken Type albuterol sulfate 90 mcg/actuation 2 puff INHALATION Q4H PRN 12/20/21 12/20/21 Unknown History aerosol inhaler (ProAir HFA) bupropion HCl 150 mg 24 hr tablet, 1 tab PO QAM 12/20/21 12/20/21 Unknown History extended release epinephrine 0.3 mg/0.3 mL 0.3 mg IM ONCE PRN 12/20/21 12/20/21 Unknown History injection, auto-injector Physical Exam Vital Signs: Vital Signs: Last Vital Signs Temp 97.6 F 12/20/21 00:38 Pulse 68 12/20/21 03:34 Resp 16 12/20/21 03:34 BP 142/84 H 12/20/21 03:34 Pulse Ox 98 12/20/21 03:34 BMI result Body Mass Index 25.0 Const: General: cooperative, comfortable and well developed Nutritional Appearance: well nourished Orientation/consciousness: patient oriented x3 Eyes: Sclerae: sclerae normal EOM: EOMs intact bilaterally Neck: Neck: Yes normal visual inspection Resp: Effort & Inspection: normal respiratory effort, no cough, no respiratory distress and no stridor Cardio: Jugular venous distension: no JVD GI: Inspection: Yes normal to inspection Palpation (GI): Soft to palpation, Tenderness to palpation present (GI) in the LLQ; Negative for not at McBurney's point, psoas sign negative, with no rebound tenderness and Rovsing's sign negative, no guarding and not rigid Skin: General skin exam: dry skin Rashes: no rashes Neuro: General: patient oriented x3 and no focal motor deficits Extrem: General: Yes full ROM and Yes no clubbing, cyanosis or edema Psych: Appearance: grossly normal Results Results Labs: Short CBC 12/19/21 12/20/21 Range/Units 20:32 06:41 WBC 10.3 7.6 (4.8-10.8) X10*3/uL Hgb 16.4 14.7 (14.0-18.0) g/dl Hct 47.8 44.5 (42.0-52.0) % Plt Count 267 221 (160-400) X10*3/uL BMP 12/19/21 20:32 Sodium 138 Potassium 4.4 Chloride 102 Carbon Dioxide 25 BUN 10 Creatinine 1.07 Calcium 9.7 Liver Function 12/19/21 Range/Units 20:32 Total Bilirubin 1.7 H (0.0-1.0) mg/dL Direct Bilirubin 0.5 (0.0-0.5) mg/dL AST 20 (5-37) U/L ALT 30 (0-40) U/L Alkaline Phosphatase 71 (39-117) U/L Albumin 4.5 (3.5-5.0) g/dL Urine 12/19/21 Range/Units 20:39 Urine Color YELLOW Urine Appearance CLEAR Urine pH 6.0 (5.0-8.0) Ur Specific [place] 1.020 (1.005-1.025) Urine Protein NEG (NEG-TRACE) MG/DL Urine Glucose (UA) NEG (NEG) MG/DL Assessment and Plan (1) Abdominal pain: Qualifiers: Abdominal location: right lower quadrant Qualified Code(s): R10.31 - Right lower quadrant pain Status: Acute Plan 31-year-old male patient presenting with complaints of abdominal pain initially in the right lower quadrant now felt more on the left lower quadrant. Pain was not associated with nausea, vomiting, fever, or chills. Initial workup was negative for appendicitis although mesenteric adenitis is a consideration. Because of the persistence of his abdominal pain in the emergency department he is admitted for IV antibiotics, pain control, and further observation. Quality Stroke Does the patient have a stroke diagnosis?: No VTE Prior VTE?: No VTE Risk Level:: Surgical - low VTE Device Contraindication: N/A - Device Ordered VTE Drug Contraindication: Treatment Not Indicated Procedures Date of Service Date of Service: 12/20/21
[2021-12-20] MEDS: Piperacillin Sodium/Tazobactam 3.375 GM in 0.9 % Sodium Chloride 50 ML IV ×3 (08:34→20:00)
--- NOTE | 2021-12-20 14:07 | MHC.CM.PN ---
PT REPORTS HE LIVES WITH HIS MOTHER AND IS INDEPENDENT WITH CARE PT REPORTS HE HAS NO DME AND NO IN HOME SERVICES PT REPORTS BEING ACTIVE WITH [facility] FOR OUTPATIENT THERAPY AND PSYCHIATRY BUT SAYS HE JUST STARTED WITH THEM PT REPORTS FOR PRIMARY CARE HE US[facility] WHERE HE IS A STUDENT PT DECLINES TO COMPLETE A HCP PT REPORTS HE IS COVID VACCINATED CURRENT DC PLAN IS HOME WITH RESUMPTION OF OUTPATIENT SERVICES PT WILL DRIVE HIMSELF HOME
[2021-12-20] MEDS: Ketorolac Tromethamine 30 MG/ML VIAL IVPUSH (14:45)
[2021-12-21 00:13] VITALS: BP 116/70; PULSE 62; RESP 16; TEMP 36.5; O2SAT 97
[2021-12-21] MEDS: Dextrose 5 % and Lactated Ring 1,000 ML 125 ML IVCONT (03:25)
[2021-12-21] MEDS: Piperacillin Sodium/Tazobactam 3.375 GM in 0.9 % Sodium Chloride 50 ML IV (03:35)
[2021-12-21 04:48] VITALS: BP 149/82; PULSE 62; RESP 16; TEMP 36.9; O2SAT 99
[2021-12-21 04:56] VITALS: RESP 16
[2021-12-21] MEDS: Morphine Sulfate 4 MG/ML CARTRIDGE IVPUSH (04:56)
--- NOTE | 2021-12-21 07:26 | PC.NURSE ---
This rn took over patient's care at 0100. Patient is alert and oriented x3, l/s clear, reports right lower abdominal pain, medicated with prn pain medication per emar. vss. ambulating to bathroom with steady gait.
[2021-12-21 09:07] LABS: Hematocrit 44.9 % (42.0-52.0); Hemoglobin 14.5 g/dl (14.0-18.0); Mean Corpuscular HGB Conc 32.3 g/dl (31.0-36.0); Mean Corpuscular Hemoglobin 30.3 pg (27.0-33.0); Mean Corpuscular Volume 93.7 fL (80.0-98.0); Mean Platelet Volume 9.6 fL (9.4-12.4); Platelet Count 214 X10*3/uL (160-400); Red Blood Count 4.79 X10*6/uL (4.60-5.80); Red Cell Distribution Width 11.9 % (11.0-16.0); White Blood Count 4.8 X10*3/uL (4.8-10.8)
[2021-12-21 09:32] VITALS: BP 153/99; PULSE 63; RESP 18; TEMP 36.2; O2SAT 97
--- NOTE | 2021-12-21 09:55 | PM.PNGS ---
Subjective Subjective Date of Service: 12/21/21 Interval history: Still complaining of some pain in the right lower quadrant but denies nausea or vomiting. Pain is well controlled with current pain medications. Physical Exam Vital Signs: Vital Signs: Last Vital Signs Temp 97.1 F 12/21/21 09:32 Pulse 63 12/21/21 09:32 Resp 18 12/21/21 09:32 BP 153/99 H 12/21/21 09:32 Pulse Ox 97 12/21/21 09:32 BMI result Body Mass Index 25.0 Const: General: no acute distress and well developed HEENT: Head: Yes normal to inspection Resp: Effort & Inspection: normal respiratory effort GI: Palpation (GI): Soft to palpation and Tenderness to palpation present (GI) in the RLQ; Negative for with no rebound tenderness and Rovsing's sign negative Percussion: Yes normal to percussion Auscultation: normal bowel sounds Extrem: General: Yes no clubbing, cyanosis or edema Objective Data Active Medications Acetaminophen (Acetaminophen 325 Mg Tablet) 650 mg PO QID PRN PRN Reason: headache, temp > 101 Dextrose/Lactated Ringer's (D5lr) 1,000 mls @ 125 mls/hr IVCONT .Q8H [facility] Last Admin: 12/21/21 03:25 Dose: 125 mls/hr Documented by: JONATHAN Piperacillin Sod/Tazobactam (Sod 3.375 gm/ Sodium Chloride) 50 mls @ 100 mls/hr IV Q6H [facility] Last Infusion: 12/21/21 04:13 Dose: 0 mls/hr Documented by: JONATHAN Ketorolac Tromethamine (Ketorolac Tromethamine 30 Mg/Ml Vial) 30 mg IVPUSH Q6H PRN PRN Reason: abdominal pain Last Admin: 12/20/21 14:45 Dose: 30 mg Documented by: HOMER Morphine Sulfate (Morphine Sulfate 4 Mg/Ml Cartridge) 4 mg IVPUSH Q3H PRN; Protocol PRN Reason: Pain, Severe (Pain Scale 7-10) Last Admin: 12/21/21 04:56 Dose: 4 mg Documented by: JONATHAN Ondansetron HCl (Ondansetron Hcl 4 Mg/2 Ml Vial) 4 mg IVPUSH QID PRN PRN Reason: Nausea Oxycodone HCl (Oxycodone Hcl Immed Release 5 Mg Tablet) 5 mg PO Q4H PRN PRN Reason: Pain, Moderate (Pain Scale 4-6 Pharmacy Consult (Consult Rx Perform Med Rec) 1 each MISCELLANE ONCE PRN PRN Reason: Consult order Sodium Chloride (0.9 % Sodium Chloride Flush 3 Ml Syringe) 3 ml IVFLUSH QSHIFT [facility] Last Admin: 12/21/21 09:50 Dose: Not Given Documented by: FREIDA Non-Admin Reason: Med Not Available Zolpidem Tartrate (Zolpidem Tartrate 5 Mg Tablet) 5 mg PO BEDTIME PRN PRN Reason: Insomnia Labs CBC & Chem 7: 12/21/21 08:52 12/19/21 20:32 Labs: Laboratory Results - last 24 hr 12/21/21 08:52 MCV 93.7 MCH 30.3 MCHC 32.3 RDW 11.9 Plt Count 214 MPV 9.6 Absolute Nucleated RBC 0.000 Nucleated RBC % (auto) 0.0 Procedures Date of Service Date of Service: 12/21/21 Progress Note: A&P Assessment and plan (1) Abdominal pain: Status: Acute Plan 31-year-old male patient presenting with complaints of right lower quadrant pain found to have a normal WBC and normal CT abdomen and pelvis. Exam today continues to have some tenderness in the right lower quadrant however repeat laboratories remain normal. I will restart his diet and if well tolerated will be discharged home in stable condition. He will be discharged on oral antibiotics for treatment of mesenteric lymphadenitis. He expressed understanding and agrees with the plan. Fall Risk Details Current Medications: Current Medications Acetaminophen (Acetaminophen 325 Mg Tablet) 650 mg PO QID PRN PRN Reason: headache, temp > 101 Dextrose/Lactated Ringer's (D5lr) 1,000 mls @ 125 mls/hr IVCONT .Q8H [facility] Last Admin: 12/21/21 03:25 Dose: 125 mls/hr Documented by: Piperacillin Sod/Tazobactam (Sod 3.375 gm/ Sodium Chloride) 50 mls @ 100 mls/hr IV Q6H [facility] Last Infusion: 12/21/21 04:13 Dose: Infused Documented by: Ketorolac Tromethamine (Ketorolac Tromethamine 30 Mg/Ml Vial) 30 mg IVPUSH Q6H PRN PRN Reason: abdominal pain Last Admin: 12/20/21 14:45 Dose: 30 mg Documented by: Morphine Sulfate (Morphine Sulfate 4 Mg/Ml Cartridge) 4 mg IVPUSH Q3H PRN; Protocol PRN Reason: Pain, Severe (Pain Scale 7-10) Last Admin: 12/21/21 04:56 Dose: 4 mg Documented by: Ondansetron HCl (Ondansetron Hcl 4 Mg/2 Ml Vial) 4 mg IVPUSH QID PRN PRN Reason: Nausea Oxycodone HCl (Oxycodone Hcl Immed Release 5 Mg Tablet) 5 mg PO Q4H PRN PRN Reason: Pain, Moderate (Pain Scale 4-6 Pharmacy Consult (Consult Rx Perform Med Rec) 1 each MISCELLANE ONCE PRN PRN Reason: Consult order Sodium Chloride (0.9 % Sodium Chloride Flush 3 Ml Syringe) 3 ml IVFLUSH [facility] Last Admin: 12/21/21 09:50 Dose: Not Given Documented by: Zolpidem Tartrate (Zolpidem Tartrate 5 Mg Tablet) 5 mg PO BEDTIME PRN PRN Reason: Insomnia Time Spent With Patient Time: Total time spent is greater than 50% in coordination of care (as documented) at patient's floor/unit and/or counseling patient: Quality Stroke Does the patient have a stroke diagnosis?: No VTE Prior VTE?: No VTE Risk Level:: Surgical - low VTE Device Contraindication: N/A - Device Ordered VTE Drug Contraindication: Treatment Not Indicated
--- NOTE | 2021-12-21 10:07 | PC.NURSE ---
pt states his abd is painful but better. states that surgeon recommends trying po again and hopful for discharge home with PO abx. iv right wrist is infiltrated ad removed. pt refusing additional iv since he's close to discharge. r efusing IV abx. as well.
--- NOTE | 2021-12-21 11:32 | PC.NURSE ---
given snack for trial po.
--- NOTE | 2021-12-21 12:24 | MHC.CM.PN ---
Male 31 DX RT LQ pain. Rita is discharged today. He will be ordered PO ABX. DP home with resumption of services in place. Patient will transport himself home.
[2021-12-21 12:27] VITALS: BP 128/80; PULSE 73; RESP 18; TEMP 36.6; O2SAT 100
--- NOTE | 2021-12-21 12:35 | PC.NURSE ---
Pt is A/o, ambulatory and independent. Pt provided with DC instructions and teachings. Pt verbalized understanding. Pt to followup with pcp and listed provider in DC paperwork, pt educated on medication administration and side effects as well with understanding. Pt DCd home at this time.
--- NOTE | 2021-12-21 13:13 | PM.DS ---
DS: Providers Provider Date of Service: 12/21/21 Date of admission: 12/20/21 02:22 Primary care physician: Constantino Physician Attending physician on admission: Austin Naranjo Attending physician on discharge: Austin Naranjo DS: Diagnosis Discharge Diagnosis (1) Abdominal pain: Status: Acute DS: Summary Hospital Course Hospital Course: BRIEF HPI: Lamine Ramirez is a 31 year old male presenting with complaints of abdominal pain in the right lower quadrant. Patient will could the morning complaints of abdominal pain around 10:00 a gradually increased in severity to a maximum of 7/10. The pain was made worse with ambulation and felt mainly in the right lower quadrant. He denies nausea, vomiting, or anorexia. He had a prior history of similar pain approximately a year ago which resolved without surgery. He presented to the emergency department for further evaluation and was noted to have tenderness in the right lower quadrant suggestive of appendicitis. Workup however revealed a normal WBC and CT which was negative for thickened appendix or changes consistent with appendicitis. Enlarged mesenteric lymph node was identified suggestive of mesenteric adenitis. HOSPITAL COURSE: The patient was admitted to the surgical service for further observation due to the persistence of his abdominal pain. He was started on IV zosyn and IV/PO analgesics for pain control. The patient had an uncomplicated recovery course. On HD #1, he felt improved with decreased abdominal pain overall and was comfortable with PO analgesics. His abdomen remained benign with mild RLQ tenderness without any peritoneal signs. His WBC count remained normal and he was afebrile and clinically appearing well. His diet was advanced to solid. He was reassessed and was tolerating a solid diet. He felt ready for discharge. He was discharged to home on 12/21/21 in stable condition on a course of PO Augmentin and is to follow up in the office. Status at Discharge Functional status at discharge: independent ambulation Overall status at discharge: patient is progressing back to baseline Time Spent with Patient Time attestation: Total time spent providing and/or coordinating discharge services: Discharge coordination time: Less than 30 minutes Quality: Stroke Does the patient have a stroke diagnosis?: No Physical Exam Vital Signs: Vital Signs: Last Vital Signs Temp 97.9 F 12/21/21 12:27 Pulse 73 12/21/21 12:27 Resp 18 12/21/21 12:27 BP 128/80 12/21/21 12:27 Pulse Ox 100 12/21/21 12:27 BMI result Body Mass Index 25.0 Const: General: comfortable, no acute distress and alert Orientation/consciousness: patient oriented x3 Resp: Effort & Inspection: normal respiratory effort GI: Inspection: No distended Palpation (GI): Soft to palpation, Tenderness to palpation present (GI) in the RLQ; Negative for not at McBurney's point and Rovsing's sign negative, no guarding and not rigid Skin: General skin exam: no rashes or lesions noted Neuro: General: patient oriented x3 DS: Data Data Completed and Pending Labs on day of discharge: Laboratory Results - last 24 hr 12/21/21 08:52 WBC 4.8 RBC 4.79 Hgb 14.5 Hct 44.9 MCV 93.7 MCH 30.3 MCHC 32.3 RDW 11.9 Plt Count 214 MPV 9.6 Absolute Nucleated RBC 0.000 Nucleated RBC % (auto) 0.0 Discharge Plan Discharge Patient Disposition: Home, Self-Care Discharge Diagnosis: mesenteric adenitis Referrals: Austin Naranjo MD [Physician] - 2 Weeks PhysicianConstantino [Primary Care Provider] - 1 Week Discharge Medications: New oxycodone 5 mg Tablet 5 mg PO Q4H PRN (Reason: Pain, Moderate (Pain Scale 4-6) Qty: 14 0RF amoxicillin-pot clavulanate [Augmentin] 500-125 mg tablet 1 tab PO Q8H 10 Days Qty: 30 0RF Continued epinephrine 0.3 mg/0.3 mL auto-injector 0.3 mg IM ONCE PRN (Reason: Allergic Reaction) 0RF albuterol sulfate [ProAir HFA] 90 mcg/actuation HFA aerosol inhaler 2 puff inhalation Q4H PRN (Reason: Shortness Of Breath) 0RF bupropion HCl 150 mg tablet extended release 24 hr 1 tab PO QAM 0RF Discharge Orders: Discharge Order (Routine); Ordered 12/21/21 Ordered By: Austin Naranjo Diet: advance to usual diet Activity on Discharge: As tolerated Stand Alone Forms: Patient Portal Discharge page Activity Restrictions/Additional Instructions: Call Your Doctor If: ? ? -Your temperature exceeds 101.5? F? ? ? -You experience excessive pain or swelling ? ? -You have an unexpected reaction to medication ? ? -You experience continued vomiting/nausea, worsening abdominal pain Care Plan Goals: Resolution of pain and return to activities as tolerated. Health Concerns: Mesenteric adenitis Plan of Treatment: Supportive measures F/u with PCP Assessment: Improved Discharge Date/Time: 12/21/21 12:51
== END 2021-12-21 12:51 | disposition home or self-care (01) | DRG 254 ==
LOC: HO.ED 12-20 02:24 → HO.EDOVER 12-20 02:29
PROVIDERS: Admitting Provider Surgery; Emergency Provider Emergency Medicine Emergency Medical Services; Visit Provider Surgery
DX: I88.0 Nonspecific mesenteric lymphadenitis (principal); F17.210 Nicotine dependence, cigarettes, uncomplicated; F41.9 Anxiety disorder, unspecified; Z71.6 Tobacco abuse counseling; Z87.442 Personal history of urinary calculi; Z91.013 Allergy to seafood; Z79.899 Other long term (current) drug therapy
CPT/HCPCS: 36415; 74177; 80048; 80076; 81001; 83690; 85025; 85027; 87635; 99218; 99285; J1885; J2270; J2405; J2543; Q9967